=== PATIENT | female | born 2000 | race Caucasian/White ===

== ENCOUNTER 2023-09-24 06:34 | Inpatient (IN) ==
[2023-09-24] MEDS ORDERED: LIDOCAINE 1% LOCAL 20 ML VIAL INFIL PRN (07:35)
[2023-09-24] MEDS ORDERED: ACETAMINOPHEN 500 MG TAB PO PRN (07:35)
[2023-09-24] MEDS ORDERED: OXYTOCIN 30 UNITS/NSS 30 UNITS/500 ML BAG IV PRN ×2 (07:35→15:03)
[2023-09-24] MEDS ORDERED: CALCIUM CARBONATE 500 MG CHEWABLE TAB PO PRN (07:35)
--- NOTE | 2023-09-24 07:43 | History & Physical Report ---
Date of Service September 24, 2023 Assessment & Plan (1) Normal labor: Oli Bueno is a 22-year-old G1, P0 currently at 38 weeks 0 days gestational age presents in labor. 1. Labor: In labor currently. Will augment as needed. Will AROM when appropriate 2. Fetus: Category 1 tracing 3. Vitals within normal limits 4. GBS negative 5. Substance use: UDS pending per plan History of Present Illness Primary Care Provider: Sully Winchester July Steward is a 22-year-old G1, P0 currently at 38 weeks 0 days gestational age presents in labor. Reporting contractions increasing in frequency and intensity starting at 5 AM. Denying leakage of fluid or vaginal bleeding. Reporting normal movement. complicated by: Daily marijuana use UDS, repeat on admission Daily vaping w/ nicotine Cessation encouraged OB Labs: Blood Type O Positive 02/18/23 Antibody Screen NEGATIVE 02/18/23 Hemoglobin 10.6 g/dl (12.0-16.0) L 07/16/23 Hematocrit 32.3 % (37.0-47.0) L 07/16/23 Mean Corpuscular Volume 87.4 fL (80.0-100.0) 04/13/23 Platelet Count 284 K/uL (130-400) 04/13/23 Rubella IgG Antibody Immune (Immune) 02/18/23 Rapid Plasma Reagin Nonreactive (Nonreactive) 02/18/23 Hepatitis B Surface Antigen. NON-REACTIVE (NON-REACTIVE) 02/18/23 Hepatitis C Antibody (EIA) NON-REACTIVE (NON-REACTIVE) 02/18/23 HIV (1&2) Ag and Ab Confirmation NON-REACTIVE (NON-REACTIVE) 02/18/23 Glucose 1 Hour 50 gm Load 132 mg/dl (70-130) H 07/16/23 OB Optional Labs: Chlamydia trachomatis RNA Not Detected (NotDetected) 02/04/23 Neisseria gonorrhoeae RNA Not Detected (NotDetected) 02/04/23 Labs Reviewed: cfdna-low risk--mln Horizon 14-negative--mln Allergies Allergy/AdvReac Type Severity Reaction Status Date / Time cefdinir [From Omnicef] Allergy Intermediate Hives Verified 09/24/23 07:00 Home Medications Medication Instructions Recorded Confirmed Type acetaminophen 500 mg tablet 500 mg PO Q6H PRN PAIN 04/13/23 09/24/23 History vits,calcium 21-iron fum 1 tab PO QAM 04/13/23 09/24/23 History 14 mg iron-folic acid 400 mcg tablet ( Complete) ferrous sulfate 1 tab PO Q OTHER DAY 08/31/23 09/24/23 History metoclopramide HCl 10 mg tablet 10 mg PO Q6H PRN nausea and 08/31/23 09/24/23 Rx (Reglan) vomiting #7 tabs Patient History Medical History Shingles Varicella vaccination Lactose intolerance History of IBS Vitamin B12 deficiency Migraines, neuralgic Surgical History S/P colonoscopy Family History Aunt Breast cancer Grandfather (Maternal) Myocardial infarction Denies family history of Ovarian cancer Prostate cancer Colorectal cancer Social History Smoking Status: Current every day smoker Tobacco Type: E-cigarettes / Vaping Cigarettes Per Day: 20-30 hits/day; Second Hand Exposure: Yes; Do You Dip or Chew Tobacco: No; Hx Alcohol Use: No Hx Substance Use: Yes Last Used Substance: Hours (ago) Last Used Substance Other:: Patient states that she smoked marijuana last night. 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 Beliefs That Will Affect Care: None marital status: Single marital status details: mitch Salmeron Bandar(22) [phone] Current Living Situation: Family and Significant Other Current Living Situation Comment: fiance, sister, sister's fiance, dogs and cats (fob changes litter) current occupational status: unemployed Feels Safe at Home: Yes Safety Concerns: Feels Safe At This Time Assistive Devices: None Physical Exam Genitourinary: OB Exam Abdomen: + vertex Manual OB Exam: + cervical dilation 4 cm, + cervical effacement 80% and + station -2 OB Exam Monitor Tracing: + external FHT monitor used, + external uterine monitor used, + category I and + normal FHT variability; no early decelerations present, no late decelerations present and no variable decelerations Results & Data Vital Signs (Past 12 Hours) Vital Signs Temp Pulse Resp BP 09/24/23 07:03 36.6 C 100 H 18 111/65 09/24/23 06:49 18 09/24/23 06:49 36.6 C 100 H 18 Coding Level of Care Code None Diagnoses Normal labor O80; Z37.9
[2023-09-24] MEDS: LACTATED RINGER'S 1,000 ML IV PRN (07:50)
--- NOTE | 2023-09-24 08:11 | Anesthesiology Consultation ---
Date of Service September 24, 2023 Assessment & Plan Chart Review Chart Review: Acceptable Risk for Labor Epidural Consults Requested none History Height/Weight Height: 5 ft 6 in Weight: 73.028 kg Allergies Allergy/AdvReac Type Severity Reaction Status Date / Time cefdinir [From Omnicef] Allergy Intermediate Hives Verified 09/24/23 07:00 Medications Home Medications Medication Instructions Recorded Confirmed Last Taken acetaminophen 500 mg tablet 500 mg PO Q6H PRN PAIN 04/13/23 09/24/23 09/22/23 19:00 vits,calcium 21-iron fum 1 tab PO QAM 04/13/23 09/24/23 09/23/23 19:00 14 mg iron-folic acid 400 mcg tablet ( Complete) ferrous sulfate 1 tab PO Q OTHER DAY 08/31/23 09/24/23 09/17/23 19:00 metoclopramide HCl 10 mg tablet 10 mg PO Q6H PRN nausea and 08/31/23 09/24/23 Unknown (Reglan) vomiting #7 tabs Active Medications Generic Name Dose Route Start Last Admin Trade Name Freq PRN Reason Stop Dose Admin Lactated Ringer's 1,000 mls @ 125 mls/hr 09/24/23 07:35 09/24/23 07:50 Lr IV 09/26/23 07:34 999 mls/hr .Q8H PRN Administration L&D Protocol Protocol Past Medical History Medical History Shingles Varicella vaccination Lactose intolerance History of IBS Vitamin B12 deficiency Migraines, neuralgic Past Family History Family History Aunt Breast cancer Grandfather (Maternal) Myocardial infarction Denies family history of Ovarian cancer Prostate cancer Colorectal cancer Past Surgical History Surgical History S/P colonoscopy Social History Smoking Status: Current every day smoker Smoking cigarettes per day: 20-30 hits/day Do You Dip or Chew Tobacco: No Hx Alcohol Use: No Hx Substance Use: Yes substance use type: marijuana Last Used Substance: Hours (ago) Last Used Substance Other:: Patient states that she smoked marijuana last night. Physical Exam Vital Signs Last Vital Signs Temp 36.6 C 09/24/23 07:03 Pulse 100 H 09/24/23 07:03 Resp 18 09/24/23 07:03 BP 111/65 09/24/23 07:03
[2023-09-24] MEDS ORDERED: fentaNYL citrate PF 100 MCG/2 ML VIAL EPI PRN (08:14)
[2023-09-24] MEDS ORDERED: ROPIVACAINE 0.5% PF 5 MG/ML 20 ML VIAL EPI PRN (08:14)
[2023-09-24] MEDS ORDERED: ePHEDrine sulfate 50 MG/ML AMP IV PRN (08:14)
[2023-09-24] MEDS ORDERED: diphenhydrAMINE 50 MG/ML VIAL IV PRN (08:14)
[2023-09-24] MEDS ORDERED: SODIUM CHLORIDE 0.9% PF INJ 10 ML VIAL EPI PRN (08:14)
[2023-09-24] MEDS ORDERED: NALOXONE HCL 0.4 MG/1 ML VIAL/CARP IV PRN (08:14)
[2023-09-24] MEDS ORDERED: NALBUPHINE HCL 5 MG in SYRINGE 0 ML IV PRN (08:14)
[2023-09-24] MEDS ORDERED: NALOXONE HCL 1 MG in SODIUM CHLORIDE 0.9% 1,000 ML IV PRN (08:14)
[2023-09-24] MEDS ORDERED: fentANYL 2 MCG/ML BUPIVacaine 0.125%-NSS 100ML BAG EPI PRN (08:14)
[2023-09-24] MEDS ORDERED: LIDOCAINE 2% MPF LOCAL 5 ML VIAL EPI PRN (08:14)
[2023-09-24] MEDS ORDERED: BUPIVACAINE 0.25% PF 30 ML VIAL EPI PRN (08:14)
[2023-09-24 08:30] LABS: Hematocrit (blood only) 36.1 % (37.0-47.0); Hemoglobin 11.8 g/dl (12.0-16.0); Mean Corpuscular Hemoglobin 28.2 pg (25.0-34.0); Mean Corpuscular Hgb Conc 32.7 g/dL (32.0-36.0); Mean Corpuscular Volume 86.4 fL (80.0-100.0); Mean Platelet Volume 9.8 fL (9.4-12.4); Platelet Count 340 K/uL (130-400); RDW Standard Deviation 40.4 fL (36.4-46.3); Red Blood Count 4.18 M/uL (4.20-5.40); White Blood Count 18.91 K/ul (4.8-10.8)
[2023-09-24 08:37] LABS: Amphetamines+Metham, Urine Neg (Neg); Barbiturates, Urine Neg (Neg); Benzodiazepine, Urine Neg (Neg); Cocaine, Urine Neg (Neg); MDMA (Ecstacy), Urine Neg (Neg); Marijuana, Urine Pos (Neg); Methadone, Urine Neg (Neg); Opiate, Urine Neg (Neg); Phencyclidine, Urine Neg (Neg)
[2023-09-24] MEDS: BUPIVACAINE 0.25% PF 30 ML VIAL ONE (08:50)
[2023-09-24] MEDS: LIDOCAINE 2%/EPINEPHRINE 1:200,000 20 ML PF ONE (08:52)
[2023-09-24] MEDS: fentANYL 2 MCG/ML BUPIVacaine 0.125%-NSS 100ML BAG ONE (08:52)
[2023-09-24] MEDS: SODIUM CHLORIDE 0.9% PF INJ 10 ML VIAL ONE (09:01)
[2023-09-24] MEDS: fentaNYL citrate PF 100 MCG/2 ML VIAL ONE (09:01)
[2023-09-24] MEDS: BUPIVACAINE 0.25% PF 30 ML VIAL EPI STA (09:02)
[2023-09-24] MEDS: SODIUM CHLORIDE 0.9% PF INJ 10 ML VIAL EPI STA (09:03)
[2023-09-24] MEDS: fentaNYL citrate PF 100 MCG/2 ML VIAL EPI STA (09:03)
[2023-09-24] MEDS: LIDOCAINE 2%/EPINEPHRINE 1:200,000 20 ML PF EPI STA (09:03)
[2023-09-24] MEDS: ONDANSETRON INJ 2 MG/ML 2 ML VIAL ONE (09:55)
[2023-09-24] MEDS: ONDANSETRON INJ 2 MG/ML 2 ML VIAL IV STA (09:55)
[2023-09-24] MEDS: OXYTOCIN 30 UNITS/NSS 30 UNITS/500 ML BAG IV PRN ×2 (12:31→20:48)
[2023-09-24] MEDS: ePHEDrine sulfate 50 MG/ML AMP ONE (13:40)
[2023-09-24] MEDS ORDERED: oxyCODONE/ACETAMINOPHEN 5mg/325mg TAB PO PRN (15:03)
[2023-09-24] MEDS ORDERED: bisacodyL 10 MG SUPP PR PRN (15:03)
[2023-09-24] MEDS ORDERED: HYDROCORTISONE ACETATE 25 MG SUPP PR PRN (15:03)
--- NOTE | 2023-09-24 15:05 | Delivery Summary ---
Vaginal Delivery Summary Date of Service September 24, 2023 Vaginal Delivery Summary and 1st Degree LAC Spontaneous vaginal livery the patient presented to active labor requested epidural artificial rupture of membranes she was 4 cm she did require slight Pitocin augmentation but soon afterwards became fully dilated at that stage she pushed delivering a baby in occiput anterior position fluid was clear there was no nuchal cord after delivery of the head gentle traction on the baby no excessive force this was an easy delivery live vigorous female infant cord clamped and cut cord blood obtained placenta removed with traction IV Pitocin started uterine tone improved she had a first-degree tear and a right vulvar laceration was repaired with 3-0 Vicryl sponge and instrument counts were correct quantitative blood loss 275 mL MNPG Vaginal Delivery Charge Delivery Type Details: and 1st Degree LAC
[2023-09-24] MEDS ORDERED: ZOLPIDEM TARTRATE 5 MG TAB PO PRN (15:09)
[2023-09-24] MEDS: DIPHTHER/TETAN/PERTUS Vaccine (Tdap, Adol/Adult) 0.5mL IM ONE (16:00)
--- NOTE | 2023-09-24 16:48 | Anesthesia Procedure Note ---
Date of Service September 24, 2023 Anesthesia Post Epidural Note Vital Signs Vital Signs: Temp Pulse Resp BP Pulse Ox 98.4 F 88 18 104/61 100 09/24/23 14:20 09/24/23 16:43 09/24/23 14:20 09/24/23 16:35 09/24/23 16:43 Pain Intensity Lower Back: Pain Intensity: 8 Notes Mental Status: alert / awake / arousable and participated in evaluation Nausea / Vomiting: adequately controlled Pain: adequately controlled Airway Patency, RR, SpO2: stable & adequate BP & HR: stable & adequate Hydration State: stable & adequate Neuraxial Anesthesia: was administered and sensory block is resolving Anesthetic Complications: no major complications apparent and Pt Satisfied with anesthetic care Epidural: Removed without complications and With tip intact
--- NOTE | 2023-09-24 20:26 | Obstetrical Progress Note ---
Date of Service September 24, 2023 Assessment & Plan Admission and Anticipated Discharge Date Admission Date: September 24, 2023 Subjective Notified by nursing at approximately 8 PM that there was an increase in bleeding with pad clots passed approximately 450 mL of blood loss at this stage IV Pitocin was started I quickly came into the hospital assessed patient her uterus was firm with some mild trickle she was transferred back to labor and delivery to bed as she was on the side of the hospital on reexamination there the uterus is firm external lacerations or not bleeding I did a gentle bimanual exam I could find no clot in the uterus We will assess the uterine tone and I do not think Cytotec addition will help ensure uterine tone is excellent at this stage would consider a Jailyn device if bleeding worsens Results & Data Vital Signs (Past 12 Hours) Vital Signs Temp Pulse Resp BP Pulse Ox 09/24/23 20:23 77 09/24/23 20:23 112/70 09/24/23 17:18 77 97 09/24/23 17:13 100 H 98 09/24/23 17:08 95 H 100 09/24/23 17:05 86 111/55 L 09/24/23 17:03 91 H 99 09/24/23 16:58 78 98 09/24/23 16:53 83 97 09/24/23 16:50 81 98/56 L 09/24/23 16:48 87 98 09/24/23 16:43 88 100 09/24/23 16:38 91 H 98 09/24/23 16:35 81 104/61 09/24/23 16:33 78 98 09/24/23 16:28 91 H 99 09/24/23 16:26 86 90 09/24/23 16:23 83 99 09/24/23 16:20 90 112/64 09/24/23 16:18 83 98 09/24/23 16:13 83 97 09/24/23 16:08 79 98 09/24/23 16:05 82 114/62 09/24/23 16:03 77 98 09/24/23 15:58 74 98 09/24/23 15:53 73 99 09/24/23 15:50 63 99/61 L 09/24/23 15:48 75 98 09/24/23 15:43 81 92 09/24/23 15:38 73 97 09/24/23 15:35 74 99/58 L 09/24/23 15:33 72 97 09/24/23 15:28 79 97 09/24/23 15:23 82 99 09/24/23 15:20 76 108/59 L 09/24/23 15:18 77 97 09/24/23 15:13 76 98 09/24/23 15:08 76 97 09/24/23 15:05 89 110/61 09/24/23 15:03 89 98 09/24/23 14:58 89 96 09/24/23 14:53 89 98 09/24/23 14:50 74 117/56 L 09/24/23 14:48 84 99 09/24/23 14:43 78 100 09/24/23 14:38 73 100 09/24/23 14:36 90 126/70 09/24/23 14:33 71 100 09/24/23 14:28 94 H 100 09/24/23 14:26 88 92 09/24/23 14:23 84 100 09/24/23 14:20 98.4 F 89 18 90/62 L 09/24/23 14:18 83 100 09/24/23 14:13 85 100 09/24/23 14:08 91 H 100 09/24/23 14:07 80 91 09/24/23 14:05 83 97/55 L 09/24/23 14:03 75 94 09/24/23 13:59 86 94 09/24/23 13:58 78 100 09/24/23 13:53 87 99 09/24/23 13:50 68 90/54 L 09/24/23 13:48 77 98 09/24/23 13:46 68 92/51 L 09/24/23 13:43 99 09/24/23 13:43 80 09/24/23 13:43 69 86/48 L 09/24/23 13:40 16 09/24/23 13:40 98.1 F 16 09/24/23 13:40 67 09/24/23 13:40 85/49 L 09/24/23 13:40 71 83/49 L 09/24/23 13:38 72 81/45 L 98 09/24/23 13:33 72 100 09/24/23 13:28 85 98 09/24/23 13:23 93 H 98 09/24/23 13:20 84 103/57 L 09/24/23 13:18 88 99 09/24/23 13:13 76 98 09/24/23 13:08 100 H 97 09/24/23 13:05 85 102/57 L 09/24/23 13:03 84 98 09/24/23 12:58 77 99 09/24/23 12:53 99 H 99 09/24/23 12:50 81 99/54 L 09/24/23 12:48 89 99 09/24/23 12:43 78 99 09/24/23 12:38 96 H 99 09/24/23 12:35 86 109/65 09/24/23 12:33 81 99 09/24/23 12:28 84 99 09/24/23 12:23 77 100 09/24/23 12:21 77 111/64 09/24/23 12:18 74 99 09/24/23 12:13 82 99 09/24/23 12:08 93 H 98 09/24/23 12:06 83 118/59 L 09/24/23 12:05 18 09/24/23 12:05 98.2 F 18 09/24/23 12:03 86 98 09/24/23 12:01 75 110/62 09/24/23 11:58 77 99 09/24/23 11:53 81 98 09/24/23 11:48 72 99 09/24/23 11:43 65 99 09/24/23 11:38 73 98 09/24/23 11:36 67 91/42 L 09/24/23 11:33 86 98 09/24/23 11:28 100 H 98 09/24/23 11:23 76 100 09/24/23 11:20 79 112/61 09/24/23 11:18 86 100 09/24/23 11:13 74 100 09/24/23 11:08 75 100 09/24/23 11:06 97.9 F 68 18 96/53 L 09/24/23 11:03 68 100 09/24/23 10:58 67 100 09/24/23 10:53 68 100 09/24/23 10:50 61 92/50 L 09/24/23 10:48 69 100 09/24/23 10:43 75 100 09/24/23 10:38 76 100 05/16/24 10:36 63 89/50 L 09/24/23 10:33 73 100 09/24/23 10:28 67 100 09/24/23 10:23 79 100 09/24/23 10:20 72 101/51 L 09/24/23 10:18 70 100 09/24/23 10:13 74 100 09/24/23 10:08 85 100 09/24/23 10:06 72 102/51 L 09/24/23 10:03 90 98 09/24/23 09:58 81 100 09/24/23 09:53 73 100 09/24/23 09:50 78 98/53 L 09/24/23 09:48 75 100 09/24/23 09:43 106 H 100 09/24/23 09:41 79 86 L 09/24/23 09:38 66 100 09/24/23 09:37 69 96/51 L 09/24/23 09:33 74 99 09/24/23 09:28 61 100 09/24/23 09:23 75 100 09/24/23 09:20 91 H 99/60 L 09/24/23 09:18 77 98 09/24/23 09:13 96 H 100 09/24/23 09:08 105 H 100 09/24/23 09:05 80 103/62 09/24/23 09:03 96 H 100 09/24/23 08:59 125 H 98/54 L 09/24/23 08:58 123 H 100 09/24/23 08:55 129 H 97/56 L 09/24/23 08:53 97 H 99 09/24/23 08:51 95 H 101/56 L 09/24/23 08:48 78 100 09/24/23 08:44 78 117/62 09/24/23 08:43 76 100 09/24/23 08:38 89 100 PG Care Time/CCT Total # of Minutes Spent Total Time Spent with Patient: Total time spent is greater than 50% in coordination of care (as documented) at patient's floor/unit and/or counseling patient: Coding Level of Care Code None
[2023-09-24] MEDS: IBUPROFEN 600 MG TAB PO PRN (20:29)
[2023-09-24] MEDS: BENZOCAINE 20% SPRY 85 APPLN/85 GM CAN EXT PRN (20:30)
[2023-09-24 21:27] LABS: Hematocrit (blood only) 28.5 % (37.0-47.0); Hemoglobin 9.5 g/dl (12.0-16.0); Mean Corpuscular Hemoglobin 28.4 pg (25.0-34.0); Mean Corpuscular Hgb Conc 33.3 g/dL (32.0-36.0); Mean Corpuscular Volume 85.1 fL (80.0-100.0); Mean Platelet Volume 9.7 fL (9.4-12.4); Platelet Count 263 K/uL (130-400); RDW Standard Deviation 40.2 fL (36.4-46.3); Red Blood Count 3.35 M/uL (4.20-5.40); White Blood Count 18.78 K/ul (4.8-10.8)
[2023-09-24] MEDS: DOCUSATE SODIUM 100 MG CAP PO SCH (21:32)
[2023-09-24] MEDS ORDERED: SODIUM CHLORIDE 0.9% 250 ML IV PRN (21:37)
[2023-09-24] MEDS: OXYTOCIN 20 UNITS in LACTATED RINGER'S 1,000 ML IV SCH (22:53)
--- NOTE | 2023-09-25 06:09 | Obstetrical Progress Note ---
Date of Service September 25, 2023 Assessment & Plan Admission and Anticipated Discharge Date Admission Date: September 24, 2023 Subjective Patient's bleeding has been minimal overnight she has been on Pitocin plan for transfer back to the main floor and continue regular care Results & Data Vital Signs (Past 12 Hours) Vital Signs Temp Pulse Resp BP Pulse Ox 09/25/23 03:45 97.9 F 16 09/25/23 03:43 70 103/58 L 09/25/23 00:15 98.4 F 16 09/25/23 00:08 69 106/56 L 09/24/23 22:27 62 09/24/23 22:27 98/56 L 09/24/23 20:25 18 09/24/23 20:25 98.4 F 18 09/24/23 20:23 77 09/24/23 20:23 112/70 09/24/23 20:06 73 108/72 100 09/24/23 20:02 71 130/85 100 09/24/23 20:00 83 136/77 100 09/24/23 19:50 74 137/85 100 PG Care Time/CCT Total # of Minutes Spent Total Time Spent with Patient: Total time spent is greater than 50% in coordination of care (as documented) at patient's floor/unit and/or counseling patient: Coding Level of Care Code None
--- NOTE | 2023-09-25 06:31 | Obstetrical Progress Note ---
Date of Service <Chase Bates MD - Last Filed: 09/25/23 07:30> September 25, 2023 Assessment & Plan <Chase Bates MD - Last Filed: 09/25/23 07:30> (1) (normal spontaneous vaginal delivery): (2) PPH ( hemorrhage): Plan 22 yo , status post on 09/24 - Pt doing well clinically. Feels well today. Eating well, voiding well, ambulating well. Pain well controlled with PRN pain meds. - Routine care -- OOB, ambulation, diet progression as tolerated Vital Signs reviewed and WNL. (Tmax at 36.9), with exception of low BP readings following delivery, as low as 98/56. Patient w/ PPH ~ 5 hours post-delivery last night and additional Pitocin ordered (30 U last night, followed by another 20 U); patient doing well this morning, counseled to drink Powerade to help restore volume status and increase BP readings after her PPH Will continue to monitor Hemoglobin Reviewed. 11.8 (09/23, 8am) 9.5 (09/23, 9pm). Blood Type: O+, GBS-, Rubella Immune. Encourage ambulation, monitor and control pain with Motrin PRN, resume regular diet, monitor lochia. Breast feeding encouraged. After discharge will have 6 week follow-up with Dr. Patel. Pt counselled on discharge instructions, for when they plan to go home following day. <Kalyan Patel MD, FACOG - Last Filed: 09/28/23 09:38> (1) (normal spontaneous vaginal delivery): (2) PPH ( hemorrhage): Subjective <Chase Bates MD - Last Filed: 09/25/23 07:30> Ambulation: ambulating normally Voiding: no voiding problems Passing Gas:: Yes Diet Tolerance:: regular diet Lochia:: Moderate Feeding Type:: breast feeding Current Pain Level(1-10): 5 (lower left abdominal area and back) Constitutional: no fever or no chills Respiratory: no cough, no chest congestion, no dyspnea or no pain on inspiration Cardiovascular: no chest pain or no palpitations Gastrointestinal: + abdominal pain, + nausea and + constipation (minor constipation); no vomiting Genitourinary (female): + dysuria (minor dysuria); no urinary frequency or no ur inary urgency Neurologic: + headache(s) (3); no tingling or no numbness Physical Exam <Chase Bates MD - Last Filed: 09/25/23 07:30> Constitutional WD/WN, vitals as above cooperative and comfortable; + not appropriately hydrated Respiratory normal respiratory effort, lungs clear to auscultation Cardiovascular RRR, no murmur, no edema Extremities: normal capillary refill; no calf tenderness Gastrointestinal (Abdomen) Inspection/Auscultation: abdomen normal to inspection and normal bowel sounds Percussion/Palpation: + abdomen tender and + abdomen firm (uterus firm to palpation) Psychiatric A+Ox3, euthymic affect Results & Data <Chase Bates MD - Last Filed: 09/25/23 07:30> Vital Signs (Past 12 Hours) Vital Signs Temp Pulse Resp BP Pulse Ox 09/25/23 03:45 36.6 C 16 09/25/23 03:43 70 103/58 L 09/25/23 00:15 36.9 C 16 09/25/23 00:08 69 106/56 L 09/24/23 22:27 62 09/24/23 22:27 98/56 L 09/24/23 20:25 18 09/24/23 20:25 36.9 C 18 09/24/23 20:23 77 09/24/23 20:23 112/70 09/24/23 20:06 73 108/72 100 09/24/23 20:02 71 130/85 100 09/24/23 20:00 83 136/77 100 09/24/23 19:50 74 137/85 100 Supervising Physician <Kalyan Patel MD, FACOG - Last Filed: 09/28/23 09:38> Co-Signing Physician Notes Resident Physician Supervision Note: I was present with Dr. Faustin during the history and exam. I discussed the case with the resident and agree with the findings and plan as documented in the note. Any exceptions or clarifications are listed here: [None] Documented By: Kalyan Patel MD, FACOG
[2023-09-25 06:37] LABS: Hematocrit (blood only) 25.4 % (37.0-47.0); Hemoglobin 8.4 g/dl (12.0-16.0); Mean Corpuscular Hemoglobin 28.5 pg (25.0-34.0); Mean Corpuscular Hgb Conc 33.1 g/dL (32.0-36.0); Mean Corpuscular Volume 86.1 fL (80.0-100.0); Mean Platelet Volume 9.6 fL (9.4-12.4); Platelet Count 235 K/uL (130-400); RDW Coefficient of Variation 12.9 % (11.5-14.5); RDW Standard Deviation 40.2 fL (36.4-46.3); Red Blood Count 2.95 M/uL (4.20-5.40); White Blood Count 15.51 K/ul (4.8-10.8)
[2023-09-25] MEDS: ACETAMINOPHEN 325 MG TAB PO PRN (07:38)
[2023-09-25] MEDS: PRENATAL VITAMIN 1 TAB PO SCH (07:38)
[2023-09-25] MEDS: ONDANSETRON 4 MG OD TAB PO PRN (18:48)
[2023-09-25] MEDS: bisacodyL 5 MG TABEC PO SCH (20:10)
--- NOTE | 2023-09-26 06:12 | Obstetrical Progress Note ---
Date of Service <Chase Bates MD - Last Filed: 09/26/23 07:35> September 26, 2023 Assessment & Plan <Chase Bates MD - Last Filed: 09/26/23 07:35> (1) (normal spontaneous vaginal delivery): (2) PPH ( hemorrhage): Plan 22 yo , status post on 09/24 - Pt doing well clinically. Feels well today. Eating well, voiding well, ambulating well. Pain well controlled with PRN pain meds. - Routine care -- OOB, ambulation, diet progression as tolerated Vital Signs reviewed and WNL. (Tmax at 36.9), with exception of low BP readings following delivery, as low as 98/56. Patient w/ PPH ~ 5 hours post-delivery and additional Pitocin ordered (30 U night of delivery, followed by another 20 U); patient doing well on day 2 after delivery, normal BP readings since yesterday morning Hemoglobin Reviewed. 11.8 (09/23, 8am) 9.5 (09/23, 9pm), 8.4 (09/24), 9,0 (today) Blood Type: O+, GBS-, Rubella Immune. Encourage ambulation, monitor and control pain with Motrin PRN, resume regular diet, monitor lochia. Breast feeding encouraged. After discharge will have 6 week follow-up with Dr. Patel. Pt counselled on discharge instructions, in event they're going home today. <Grisel Byrne MD - Last Filed: 09/26/23 09:20> (1) (normal spontaneous vaginal delivery): (2) PPH ( hemorrhage): Subjective <Chase Bates MD - Last Filed: 09/26/23 07:35> Ambulation: ambulating normally Voiding: no voiding problems Passing Gas:: Yes Diet Tolerance:: regular diet Lochia:: Small Feeding Type:: breast feeding Current Pain Level(1-10): 3 (cramping pain that occurs during / back also painful) Constitutional: no fever or no chills Ear, Nose, Mouth, Throat: no nasal congestion, no nasal discharge or no sore throat Respiratory: + cough (dry cough); no chest congestion, no dyspnea or no pain on inspiration Cardiovascular: no chest pain or no palpitations Gastrointestinal: + abdominal pain, + nausea and + constipation (minor constipation); no vomiting Genitourinary (female): + dysuria (minor dysuria); no urinary frequency or no urinary urgency Neurologic: no tingling, no numbness or no headache(s) (resolved) Physical Exam <Chase Bates MD - Last Filed: 09/26/23 07:35> Constitutional WD/WN, vitals as above cooperative and comfortable; + not appropriately hydrated Respiratory normal respiratory effort, lungs clear to auscultation Cardiovascular RRR, no murmur, no edema Extremities: normal capillary refill; no calf tenderness Gastrointestinal (Abdomen) Inspection/Auscultation: abdomen normal to inspection and normal bowel sounds Percussion/Palpation: + abdomen tender and + abdomen firm (uterus firm to palpation) Psychiatric A+Ox3, euthymic affect Results & Data <Chase Bates MD - Last Filed: 09/26/23 07:35> Vital Signs (Past 12 Hours) Vital Signs Temp Pulse Resp BP Pulse Ox O2 Del Method 09/25/23 23:00 36.6 C 70 16 104/68 99 Room Air 09/25/23 19:30 36.6 C 85 18 98 Room Air Supervising Physician <Grisel Byrne MD - Last Filed: 09/26/23 09:20> Co-Signing Physician Notes Resident Physician Supervision Note: I interviewed and examined the patient. Discussed with Dr. Bates and agree with findings and plan as documented in the note. Any exceptions or clarifications are listed here: PP2 s/p , dc home today Documented By: Grisel Byrne MD
[2023-09-26 06:58] LABS: Hematocrit (blood only) 27.9 % (37.0-47.0)
[2023-09-26 13:03] LABS: Marijuana Quant, GCMS Urine 86 ng/mL (<5)
== END 2023-09-26 11:30 | disposition home or self-care (01) | DRG 807 ==
LOC: OPB 06:34 → 4S1 06:37 → 4E2 17:20 → 4S1 20:18 → 4E2 09-25 08:50
DX: Z37.0 Single live birth; Z88.1 Allergy status to other antibiotic agents; O72.1 Other immediate postpartum hemorrhage; F17.290 Nicotine dependence, other tobacco product, uncomplicated; O99.334 Smoking (tobacco) complicating childbirth; O70.0 First degree perineal laceration during delivery; Z3A.38 38 weeks gestation of pregnancy